=== PATIENT | female | born 1985 | race Caucasian/White ===

== ENCOUNTER 2017-05-19 12:10 | Emergency (ER) | payer OTHER ==
[2017-05-19 12:10] VITALS: BMI 30.2
--- NOTE | 2017-05-19 12:45 | ED PDOC ---
HPI: Abdomen Time Seen by Provider: 05/19/17 12:21 Chief Complaint (Nursing): Abdominal Pain Chief Complaint (Provider): Abdominal Pain History Per: Patient History/Exam Limitations: no limitations Onset/Duration Of Symptoms: Days Current Symptoms Are (Timing): Still Present Additional Complaint(s): 31 y/o female, 16 weeks , who presents to the emergency department with a sharp lower abdominal pain with light vaginal spotting noted earlier this morning while at work. Denies nausea, vomiting, and diarrhea. SAFETY DIRECTOR: Dr. Conte Past Medical History Reviewed: Historical Data, Nursing Documentation, Vital Signs Vital Signs: Last Vital Signs Temp 98.2 F 05/19/17 19:10 Pulse 75 05/19/17 19:10 Resp 17 05/19/17 19:10 BP 150/89 05/19/17 19:10 Pulse Ox 98 05/19/17 19:10 - Medical History PMH: No Chronic Diseases - Surgical History Surgical History: No Surg Hx - Family History Family History: States: Unknown Family Hx - Social History Current smoker - smoking cessation education provided: No Alcohol: None Drugs: Denies - Home Medications Home Medications: Ambulatory Orders Medication Instructions Recorded Multivit/Folic Acid/I 1 tab PO DAILY 11/18/15 [ Plus] Nitrofurantoin Macrocrystals 100 mg PO BID #13 cap 05/19/17 [Macrobid] - Allergies Allergies/Adverse Reactions: Allergies Allergy/AdvReac Type Severity Reaction Status Date / Time No Known Allergies Allergy Verified 03/07/16 17:58 Review of Systems ROS Statement: Except As Marked, All Systems Reviewed And Found Negative Gastrointestinal: Positive for: Abdominal Pain (Lower region). Negative for: Nausea, Vomiting, Diarrhea Genitourinary Female: Positive for: Vaginal Bleeding (Light spotting) Physical Exam - Reviewed Nursing Documentation Reviewed: Yes Vital Signs Reviewed: Yes - Physical Exam Appears: Positive for: Non-toxic, No Acute Distress Head Exam: Positive for: ATRAUMATIC, NORMAL INSPECTION, NORMOCEPHALIC Skin: Positive for: Normal Color, Warm, Dry Cardiovascular/Chest: Positive for: Regular Rate, Rhythm. Negative for: Murmur Respiratory: Positive for: Normal Breath Sounds. Negative for: Accessory Muscle Use, Respiratory Distress Gastrointestinal/Abdominal: Positive for: Normal Exam, Soft. Negative for: Tenderness Extremity: Positive for: Normal ROM. Negative for: Pedal Edema Neurologic/Psych: Positive for: Alert, Oriented (x3) - Laboratory Results Result Diagrams: 05/19/17 13:00 05/19/17 13:00 - ECG O2 Sat by Pulse Oximetry: 100 (Ra) Pulse Ox Interpretation: Normal Medical Decision Making Medical Decision Making: Time: 12:40 Initial Impression: Round ligament pain Initial Plan: --ABO/RH Type --Type and screen --CMP --Urine DIP --CBC w/ diff --Tylenol 650 mg PO --Dextrose 1L mls/hr --Urinalysis --OB Preg Limited US --Reevaluation [address] Aguero, who agrees with plan to give patient rhogam. Patient is medically stable and will be discharged home. Scribe Attestation: Documented by Eulalia Carter and Ria Snowden, acting as a scribe for Pat Mcdonald MD. Provider Scribe Attestation: All medical record entries made by the Scribe were at my direction and personally dictated by me. I have reviewed the chart and agree that the record accurately reflects my personal performance of the history, physical exam, medical decision making, and the department course for this patient. I have also personally directed, reviewed, and agree with the discharge instructions and disposition. Disposition - Clinical Impression Clinical Impression: Abdominal pain during in second trimester, UTI (urinary tract infection), Need for rhogam due to Rh negative mother - Patient ED Disposition Is Patient to be Admitted: No - Disposition Referrals: Elena Conte MD [Staff Provider] - Disposition: Routine/Home Disposition Time: 14:43 Condition: STABLE Prescriptions: Nitrofurantoin Macrocrystals [Macrobid] 100 mg PO BID #13 cap Instructions: Rho(D) Immune Globulin (By injection), Abdominal Pain in (ED), Urinary Tract Infection in (ED) Forms: [employer] (Sammarinese)
[2017-05-19 13:23] LABS: BASO % 0.1 % (0.0-2.0); EOS % 0.4 % (0.0-4.0); HEMATOCRIT 32.7 % (34.0-47.0); LYMPH # 2.1 K/uL (1.0-4.3); LYMPH % 18.2 % (20.0-40.0); MEAN CELL VOLUME 76.4 fl (81.0-99.0); MEAN CORPUSCULAR HEMOGLOBIN 24.6 pg (27.0-31.0); MEAN CORPUSCULAR HGB CONC 32.2 g/dL (33.0-37.0); MEAN PLATELET VOLUME 8.9 fl (7.2-11.7); MONO # 0.6 K/uL (0.0-0.8); MONO % 5.2 % (0.0-10.0); NEUT % 76.1 % (50.0-75.0); RED CELL DISTRIBUTION WIDTH 12.9 % (11.5-14.5); WHITE BLOOD COUNT 11.8 K/uL (4.8-10.8)
[2017-05-19 13:38] LABS: ALB/GLOB RATIO 1.2 (1.0-2.1); ALKALINE PHOSPHATASE 53 U/L (38-126); ALT/SGPT 25 U/L (9-52); AST/SGOT 16 U/L (14-36); BILIRUBIN,TOTAL 0.4 mg/dl (0.2-1.3); BLOOD UREA NITROGEN 8 mg/dl (7-17); CALCIUM 9.1 mg/dL (8.4-10.2); CARBON DIOXIDE 24 mmol/L (22-30); CHLORIDE 104 mmol/L (98-107); GFR AFRICAN-AMERICAN > 60; GLUCOSE,RANDOM 76 mg/dL (65-105); POTASSIUM 4.3 MMOL/L (3.6-5.0); SODIUM 140 mmol/l (132-148)
[2017-05-19 13:43] LABS: RBC URINE 5 /hpf (0-3); URINE BACTERIA FEW (<OCC); URINE BILIRUBIN NEGATIVE (NEGATIVE); URINE BLOOD NEGATIVE (NEGATIVE); URINE COLOR YELLOW (YELLOW); URINE GLUCOSE (UA) NEG (Normal); URINE KETONE 20 mg/dL (NEGATIVE); URINE LEUKOCYTE ESTERASE MOD Leu/uL (Negative); URINE PROTEIN NEGATIVE (NEGATIVE); URINE UROBILINOGEN 0.2-1.0 mg/dL (0.2-1.0); WBC URINE 9 /hpf (0-5)
--- NOTE | 2017-05-19 14:43 | US ---
PROCEDURE: Limited obstetrical ultrasound examination HISTORY: BLQ pain, 15 weeks COMPARISON: Not available TECHNIQUE: Transabdominal FINDINGS: Examination demonstrates a single live intrauterine gestation in variable presentation. The heart rate is 145 beats per minute. A grossly normal quantity of amniotic fluid is visualized. A normal anterior placenta is identified. There is no evidence of placenta previa. The cervix is closed and measures 6.2 cm in length. biometry yields a gestational age of 17 weeks 0 days. JAIMIE by ultrasound is 10/27/2017. No anatomic assessment was performed at this time. The ovaries are not visualized. There are no adnexal masses seen. IMPRESSION: Single live intrauterine gestation of approximately 17 weeks 0 days by ultrasound. Heart rate 145 beats per minute. Variable presentation. Anterior placenta. Cervix closed. No adnexal masses. Ovaries not visualized.
[2017-05-19 19:13] VITALS: BP 150/89; PULSE 75; RESP 17; TEMP 98.2
[2017-05-21 11:53] VITALS: O2SAT 100
== END 2017-05-19 15:45 | disposition home or self-care (01) ==
LOC: H.ER 12:10
DX: O23.40 Unspecified infection of urinary tract in pregnancy, unspecified trimester (principal); O36.0191 Maternal care for anti-D [Rh] antibodies, unspecified trimester, fetus 1
CPT/HCPCS: 76815; 80053; 81003; 81025; 85025; 86850; 86900; 96360; 99284; J2792; J7042

== ENCOUNTER 2017-08-25 17:14 | Emergency (ER) | payer OTHER ==
[2017-08-25 17:19] VITALS: BMI 28.5
--- NOTE | 2017-08-25 20:11 | OBDCSUM ---
Datetime: 08/25/2017 20:10 Discharged to, Provider: Home Follow up at, Provider: Adam Disch Instr Activity: Normal activity Disch Instr Diet: Regular Discharge Instructions, Provider: Routine instructions given Follow up in weeks, Provider: 1-2w Disch Referrals: None Contraception discussed, Prov: Yes Discharge Comment, Provider: Wilderam given Discharge Diagnosis Prov Other: 30w Rh negative
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
[2017-08-26 00:41] VITALS: BP 124/54; PULSE 81; RESP 18; TEMP 97.7
== END 2017-08-25 20:15 | disposition home or self-care (01) ==
LOC: H.EROB2 17:14
DX: O36.0931 Maternal care for other rhesus isoimmunization, third trimester, fetus 1 (principal); Z23 Encounter for immunization; Z3A.30 30 weeks gestation of pregnancy
CPT/HCPCS: 86850; 86900; 99281; J2792

== ENCOUNTER 2017-10-30 20:00 | Inpatient (IN) | payer OTHER ==
[2017-10-30 21:12] VITALS: BMI 31.2
[2017-10-30 21:30] LABS: BASO % 0.4 % (0.0-2.0); EOS # 0.1 K/uL (0.0-0.7); EOS % 0.5 % (0.0-4.0); HEMOGLOBIN 11.7 g/dL (12.0-16.0); LYMPH # 2.4 K/uL (1.0-4.3); LYMPH % 23.1 % (20.0-40.0); MEAN CELL VOLUME 78.4 fl (81.0-99.0); MEAN CORPUSCULAR HEMOGLOBIN 25.6 pg (27.0-31.0); MEAN CORPUSCULAR HGB CONC 32.6 g/dL (33.0-37.0); MEAN PLATELET VOLUME 10.3 fl (7.2-11.7); MONO # 0.7 K/uL (0.0-0.8); MONO % 6.4 % (0.0-10.0); NEUT # 7.4 K/uL (1.8-7.0); NEUT % 69.6 % (50.0-75.0); RBC 4.57 Mil/uL (3.80-5.20); WHITE BLOOD COUNT 10.6 K/uL (4.8-10.8)
[2017-10-31] MEDS ORDERED: Nalbuphine 20 mg/ml Inj (1 ml) IVP PRN (05:37)
[2017-10-31] MEDS: Lactated Ringer's 1,000 ML IV SCH ×4 (07:00→13:55)
[2017-10-31] MEDS ORDERED: Fentanyl/Bupivacaine HCl 250 ML EPI ONE (07:29)
[2017-10-31] MEDS ORDERED: Bupivacaine HCl 0.25% PF (10 ml) Inj ONE (07:32)
[2017-10-31] MEDS: Oxytocin 30 UNITS in Sodium Chloride 0.9% 500 ML IV SCH ×16 (09:12→14:34)
--- NOTE | 2017-10-31 09:55 | OBPN ---
Datetime: 10/31/2017 09:30 IP Progress Impression: Normal progression of labor; Reassuring heart rate IP Informed Consent Obtain: Vaginal Delivery; Risks, Benefits and Alternatives Discussed IP Progress Plan: Continue present management IP Progress Note Comment: [facility]. Pt seen and she was comfortable. She was just chec ked by Sri Son - 9cm Sonogram done to confirm cephalic presentatoin A: Active phase of labor epidural working well. PLAN: observe labor progress FHR Category Provider Fetus A: Category I Dilatation, Provider: 9 NICHD Decel Fetus A IP Provider: None Datetime: 10/30/2017 20:43 Pool Provider: Negative Membranes, Provider: Intact FHR - Baseline A Provider: 130s Vital Signs Provider: Reviewed; Within Normal Limits NICHD Accel Fetus A IP Provider: [id number] NICHD Variability Prov Fetus A: Moderate 6-25bpm Effacement, Provider: THICK Station, Provider: -4
[2017-10-31] MEDS ORDERED: Lidocaine 1% Inj (20ml) ONE (12:34)
[2017-10-31] MEDS ORDERED: Oxycodone/Acetaminophen 5/325 mg Tab PO PRN (13:08)
--- NOTE | 2017-10-31 19:35 | OBDS ---
DELIVERY PERSONNEL Delivery Doctor: Stefania Aguero DO Theatre Manager: Sri Son RN Resident: MD gloria (resident) MATERNAL INFORMATION Delivery Anesthesia: Epidural Medications in Delivery: Pitocin Estimated Blood Loss (ml): 200 Placenta Cultured: No Maternal Complications: None Provider Comments: Over intact perineum, of live male infant - compund presentatoin (ceph/right hand). Infant was delivered and crying spontaneously. was placed on her chest for skin-to-s kin. 9,9. Placenta was delivered intact spontaneously. She remained stable. EBL 200cc LABOR SUMMARY EDC: 11/02/2017 00:00 No. Babies in Womb: 1 Attempted: No Labor Anesthesia: epidural LABOR INFORMATION Reason for Induction: Other Reason for Induction Other: presentation changed 4 x Onset of Labor: 10/31/2017 06:30 Complete Dilatation: 10/31/2017 12:20 Cervical Ripening Agents: Cytotec @ 25 MCG Oxytocin: Induction Group B Beta Strep: Negative Antibiotics # of Doses: 0 Steroids Given: None Reason Steroids Not Administered: Not Applicable Other Reason Not Administered: not required MEMBRANES Membranes Rupture Method: Spontaneous Rupture of Membranes: 10/31/2017 12:20 Length of Rupture (hrs): 0.48 Amniotic Fluid Color: Clear Amniotic Fluid Amount: Small Amniotic Fluid Odor: Normal STAGES OF LABOR Stage 1 hrs: 5 Stage 1 min: 50 Stage 2 hrs: 0 Stage 2 min: 29 Stage 3 hrs: 0 Stage 3 min: 6 Total Time in Labor hrs: 6 Total Time in Labor min: 25 VAGINAL DELIVERY Episiotomy: None Laceration Extension: N/A Laceration Type: None Laceration Repair: Not Applicable Laceration Repair Note: no laceratoin repaired Initial Vag Sponge Count: 5 Final Vag Sponge Count: 5 Initial Vag Sharps Count: 1 Final Vag Sharps Count: 1 Sponge Count Correct: Yes Sharps Count Correct: Yes Count Comment: 5 laps one syringe BABY A INFORMATION Infant Delivery Date/Time: 10/31/2017 12:49 Method of Delivery: Vaginal Born in Route : No : N/A Forceps: N/A Vacuum Extraction: N/A Shoulder Dystocia : No SHOULDER DYSTOCIA BABY A Delivery Date/Time: 10/31/2017 12:49 PRESENTATION/POSITION BABY A Presentation: Cephalic Cephalic Presentation: Vertex Vertex Position: Left Occipital Anterior Breech Presentation: N/A PLACENTA INFORMATION BABY A Placenta Delivery Time : 10/31/2017 12:55 Placenta Method of Delivery: Spontaneous Placenta Status: Delivered SCORES BABY A Heart Rate 1 min: >100 bpm Resp Effort 1 min: Good Cry Reflex Irritability 1 min: Cough or Sneeze or Pulls Away Muscle Tone 1 min: Active Motion Color 1 min: Body [place], Extremities Blue Resuscitation Effort 1 min: N/A SCORE 1 MIN: 9 Heart Rate 5 min: >100 bpm Resp Effort 5 min: Good Cry Reflex Irritability 5 min: Cough or Sneeze or Pulls Away Muscle Tone 5 min: Active Motion Color 5 min: Body [place], Extremities Blue Resuscitation Effort 5 min: N/A SCORE 5 MIN: 9 INFORMATION BABY A Gestational Age at Delivery: 39.0 Gestational Status: Term Outcome : Liveborn Condition : Stable Sex: Male IDENTIFICATION/MEDS BABY A ID Band Number: [id number] ID Band Location: Right Leg; Right Arm WEIGHT/LENGTH BABY A Infant Birthweight (gms): 3545 Weight (lb): 7 Infant Weight (oz): 13 Length Inches: 20.00 Length cms: 50.8 CORD INFORMATION BABY A No. Cord Vessels: 3 Nuchal Cord : N/A Cord Blood Taken: No Infant Suction: Mouth; Nose ASSESSMENT BABY A Complications: None Physical Findings at Delivery: Other Physical Findings Other: compound presentation of right hand during delivery Respirations: Appears Normal Back Gray Cloth Washer/ALS Called : No Infant Care By: Eze Son Transferred To: Remains with Mother
--- NOTE | 2017-10-31 19:40 | OBDS ---
DELIVERY PERSONNEL Delivery Doctor: Stefania Aguero DO Assistant Import Manager: Sri Son RN Resident: MD gloria (resident) MATERNAL INFORMATION Delivery Anesthesia: Epidural Medications in Delivery: Pitocin Estimated Blood Loss (ml): 200 Placenta Cultured: No Maternal Complications: None Provider Comments: Over intact perineum, of live male infant - compund presentatoin (ceph/right hand). Infant was delivered and crying spontaneously. was placed on her chest for skin-to-s kin. 9,9. Placenta was delivered intact spontaneously. She remained stable. EBL 200cc LABOR SUMMARY EDC: 11/02/2017 00:00 No. Babies in Womb: 1 Attempted: No Labor Anesthesia: epidural LABOR INFORMATION Reason for Induction: Other Reason for Induction Other: presentation changed 4 x Onset of Labor: 10/31/2017 06:30 Complete Dilatation: 10/31/2017 12:20 Cervical Ripening Agents: Cytotec @ 25 MCG Oxytocin: Induction Group B Beta Strep: Negative Antibiotics # of Doses: 0 Steroids Given: None Reason Steroids Not Administered: Not Applicable Other Reason Not Administered: not required MEMBRANES Membranes Rupture Method: Spontaneous Membranes Rupture Method: Spontaneous Rupture of Membranes: 10/31/2017 12:20 Rupture of Membranes: 10/31/2017 12:20 Length of Rupture (hrs): 0.48 Length of Rupture (hrs): 0.48 Amniotic Fluid Color: Clear Amniotic Fluid Color: Clear Amniotic Fluid Amount: Small Amniotic Fluid Amount: Small Amniotic Fluid Odor: Normal Amniotic Fluid Odor: Normal STAGES OF LABOR Stage 1 hrs: 5 Stage 1 min: 50 Stage 2 hrs: 0 Stage 2 min: 29 Stage 3 hrs: 0 Stage 3 min: 6 Total Time in Labor hrs: 6 Total Time in Labor min: 25 VAGINAL DELIVERY Episiotomy: None Laceration Extension: N/A Laceration Type: None Laceration Repair: Not Applicable Laceration Repair Note: no laceratoin repaired Initial Vag Sponge Count: 5 Final Vag Sponge Count: 5 Initial Vag Sharps Count: 1 Final Vag Sharps Count: 1 Sponge Count Correct: Yes Sharps Count Correct: Yes Count Comment: 5 laps one syringe BABY A INFORMATION Infant Delivery Date/Time: 10/31/2017 12:49 Method of Delivery: Vaginal Born in Route : No : N/A Forceps: N/A Vacuum Extraction: N/A Shoulder Dystocia : No SHOULDER DYSTOCIA BABY A Delivery Date/Time: 10/31/2017 12:49 PRESENTATION/POSITION BABY A Presentation: Cephalic Cephalic Presentation: Vertex Vertex Position: Left Occipital Anterior Breech Presentation: N/A PLACENTA INFORMATION BABY A Placenta Delivery Time : 10/31/2017 12:55 Placenta Method of Delivery: Spontaneous Placenta Status: Delivered SCORES BABY A Heart Rate 1 min: >100 bpm Resp Effort 1 min: Good Cry Reflex Irritability 1 min: Cough or Sneeze or Pulls Away Muscle Tone 1 min: Active Motion Color 1 min: Body [place], Extremities Blue Resuscitation Effort 1 min: N/A SCORE 1 MIN: 9 Heart Rate 5 min: >100 bpm Resp Effort 5 min: Good Cry Reflex Irritability 5 min: Cough or Sneeze or Pulls Away Muscle Tone 5 min: Active Motion Color 5 min: Body [place], Extremities Blue Resuscitation Effort 5 min: N/A SCORE 5 MIN: 9 INFORMATION BABY A Gestational Age at Delivery: 39.0 Gestational Status: Term Outcome : Liveborn Infant Condition : Stable Sex: Male IDENTIFICATION/MEDS BABY A ID Band Number: [id number] ID Band Location: Right Leg; Right Arm WEIGHT/LENGTH BABY A Birthweight (gms): 3545 Weight (lb): 7 Infant Weight (oz): 13 Infant Length Inches: 20.00 Infant Length cms: 50.8 CORD INFORMATION BABY A No. Cord Vessels: 3 Nuchal Cord : N/A Cord Blood Taken: No Suction: Mouth; Nose ASSESSMENT BABY A Complications: None Physical Findings at Delivery: Other Physical Findings Other: compound presentation of right hand during delivery Respirations: Appears Normal Mission Commander/ALS Called : No Care By: Eze Son Transferred To: Remains with Mother
[2017-11-01 06:46] LABS: BASO % 0.2 % (0.0-2.0); EOS # 0.1 K/uL (0.0-0.7); EOS % 0.9 % (0.0-4.0); HEMOGLOBIN 10.4 g/dL (12.0-16.0); LYMPH % 26.5 % (20.0-40.0); MEAN CELL VOLUME 79.6 fl (81.0-99.0); MEAN CORPUSCULAR HEMOGLOBIN 25.9 pg (27.0-31.0); MEAN CORPUSCULAR HGB CONC 32.5 g/dL (33.0-37.0); MEAN PLATELET VOLUME 10.6 fl (7.2-11.7); MONO # 0.8 K/uL (0.0-0.8); MONO % 5.3 % (0.0-10.0); NEUT # 10.1 K/uL (1.8-7.0); NEUT % 67.1 % (50.0-75.0); NRBC % 0.1 % (0.0-0.0); RBC 4.01 Mil/uL (3.80-5.20); WHITE BLOOD COUNT 15.1 K/uL (4.8-10.8)
[2017-11-01] MEDS: Multivitamin With Minerals Tab PO SCH (09:44)
[2017-11-01] MEDS: Benzocaine/Menthol SPRAY TOP PRN (09:45)
[2017-11-02 07:16] LABS: BASO % 0.3 % (0.0-2.0); EOS # 0.1 K/uL (0.0-0.7); EOS % 0.9 % (0.0-4.0); HEMOGLOBIN 10.4 g/dL (12.0-16.0); LYMPH # 3.9 K/uL (1.0-4.3); LYMPH % 31.5 % (20.0-40.0); MEAN CORPUSCULAR HEMOGLOBIN 25.7 pg (27.0-31.0); MEAN CORPUSCULAR HGB CONC 32.6 g/dL (33.0-37.0); MEAN PLATELET VOLUME 10.8 fl (7.2-11.7); MONO # 0.6 K/uL (0.0-0.8); MONO % 5.1 % (0.0-10.0); NEUT # 7.8 K/uL (1.8-7.0); NEUT % 62.2 % (50.0-75.0); RBC 4.06 Mil/uL (3.80-5.20); RED CELL DISTRIBUTION WIDTH 14.9 % (11.5-14.5); WHITE BLOOD COUNT 12.5 K/uL (4.8-10.8)
--- NOTE | 2017-11-02 07:40 | OBDCSUM ---
Datetime: 11/02/2017 07:37 Discharged to, Provider: Home Follow up at, Provider: Dr. Conte Disch Instr Activity: Normal activity; May Shower Disch Instr Diet: Regular Discharge Instructions, Provider: Routine instructions given Discharge Diagnosis, Provider: Term Delivered Discharge Time: 11/02/2017 07:37 Follow up in weeks, Provider: 6 weeks Contraception discussed, Prov: No Disch Activity Restrictions: No exercising; No lifting; No sexual activity; Nothing in vagina - Inte rcourse, tampons, douche
--- NOTE | 2017-11-02 07:40 | OBPPN ---
Datetime: 11/02/2017 07:33 PP Pain Prov: Within normal limits PP Abdomen/Uterus Prov: Normal PP Lochia Prov: Normal PP Extremities Prov: Normal PP Progress Prov: Normal PP Impression Prov: Normal progression PP Plan Prov: Discharge PP Progress Note Prov: PPD 2 s/p , doing well, breast and bottle feeding Rx motrin given Discharge home today Vital Signs Provider PP: Reviewed
[2017-11-02] MEDS: Benzocaine/Menthol SPRAY TOP PRN (08:13)
[2017-11-02] MEDS: Multivitamin With Minerals Tab PO SCH (08:31)
[2017-11-02 18:06] VITALS: BP 130/66; PULSE 72; RESP 20; TEMP 98.2; O2SAT 100
== END 2017-11-02 12:12 | disposition home or self-care (01) | DRG 373 ==
LOC: H.EROB2 20:00 → H.L&D 21:12 → H.OB/GYN 10-31 16:01
PROVIDERS: ADMIT Obstetrics & Gynecology; ATTEND Obstetrics & Gynecology
PROC: 4A1HXCZ Monitoring of Products of Conception, Cardiac Rate, External Approach (ICD-10-PCS; 2017-10-30)
PROC: 10E0XZZ Delivery of Products of Conception, External Approach (ICD-10-PCS; principal; 2017-10-31)
DX: O32.6XX0 Maternal care for compound presentation, not applicable or unspecified (principal); Z37.0 Single live birth; Z3A.39 39 weeks gestation of pregnancy